=== PATIENT | female | born 1980 | race Two or more races ===

== ENCOUNTER → 2018-01-11 | Outpatient (REF) | payer BC | LOC: M SFHCLERA 19:01 | DX: J39.2 Other diseases of pharynx (principal) ==

== ENCOUNTER → 2018-05-08 | Outpatient (REF) | payer BC | LOC: M SFHCLERA 17:01 | DX: J02.9 Acute pharyngitis, unspecified (principal) ==

== ENCOUNTER → 2019-10-03 | Outpatient (CLI) | payer BC, OTHER ==
--- NOTE | 2019-10-03 10:03 | REP ---
Two-view chest: 10/03/2019. Indication: Dyspnea. Comparison: None. Findings: The lungs are clear. There is no pleural effusion or pneumothorax. The cardiomediastinal silhouette is unremarkable. Impression: No acute cardiopulmonary process. Electronically Signed by Henry Espinal DO 10/03/2019 09:55 A
== END ==
LOC: M LRY 09:31
PROVIDERS: ATTEND Nurse Practitioner Family
DX: R06.89 Other abnormalities of breathing (principal)

== ENCOUNTER → 2019-10-03 | Outpatient (REF) | payer OTHER | LOC: M SFHCLERA 09:38 | PROVIDERS: ATTEND Nurse Practitioner Family | DX: J02.9 Acute pharyngitis, unspecified (principal) ==

== ENCOUNTER → 2024-12-30 | Outpatient (REF) | payer BC | LOC: M LAB REF 16:15 | PROVIDERS: ATTEND Physician Assistant | DX: B34.9 Viral infection, unspecified (principal) ==